=== PATIENT | male | born 1965 | race Caucasian/White ===

== ENCOUNTER 2018-08-12 15:27 | Observation (INO) ==
[2018-08-12] MEDS ORDERED: Aspirin 81 MG TAB.CHEW PO STA (15:32)
--- NOTE | 2018-08-12 15:35 | Emergency Department Note ---
Disposition Clinical Impression: Chest pain Disposition: Admitted As Inpatient Condition: Good Time of Disposition: 17:00 Chest Pain HPI - General Chief Complaint: ED Chest Pain Stated Complaint: substernal chest pain Time Seen by Provider: 08/12/18 15:27 Source: patient Mode of arrival: ambulatory Limitations: no limitations Vital Signs Reviewed: Yes Nursing Notes Reviewed: Yes - History of Present Illness HPI Narrative: Patient presents to emergency department today with history of chest pain yesterday that lasted about an hour. Went away on its own. He has never had chest pain like this before it was substernal. He did break out in a sweat had some nausea did not complain of any shortness of breath. Today he said intermittent chest pain he is not having chest pain currently. He says he just has not felt well today. He denies any fevers or chills belly pain diarrhea or other complaints Onset (ago): day(s) (1) Duration: intermittent Pain Location: substernal Severity: mild Quality: tightness Pain Radiation: none Improves with: nothing Worsens with: nothing Associated symptoms: Reports: nausea, diaphoresis. Denies: vomiting, dyspnea, syncope, palpitations, fever, cough, leg swelling, other Treatments prior to arrival chest pain: none - Related Data Home Medications Medication Instructions Recorded Confirmed Hydrochlorothiazide [Microzide] 12.5 mg PO BID 12/10/15 08/12/18 amLODIPine [Norvasc] 10 mg PO BID 12/10/15 08/12/18 Allergies Allergy/AdvReac Type Severity Reaction Status Date / Time No Known Allergies Allergy Verified 12/10/15 17:22 All systems ED: reviewed and negative except as stated. Review of Systems: As Per HPI Constitutional: Denies: fever, chills, weakness, weight change Eyes: Denies: eye pain, eye discharge, vision change ENT ED: Denies: ear pain, throat pain, dental pain, hearing loss, epistaxis, congestion, dysphagia Cardiovascular: Reports: as per HPI, chest pain Respiratory: Denies: cough, dyspnea, wheezes, hemoptysis, stridor Gastrointestinal: Reports: as per HPI, nausea. Denies: abdominal pain, v omiting, diarrhea, constipation, hematemesis, melena, hematochezia Genitourinary: Denies: urgency, dysuria, frequency, hematuria Musculoskeletal: Denies: back pain, neck pain, arthralgia, myalgia Integumentary: Denies: rash, abrasion, lesions Neurological: Denies: headache, weakness, numbness, paresthesias, confusion, abnormal gait, vertigo Psychiatric: Denies: anxiety, depression, suicidal thoughts, homicidal thoughts, auditory hallucinations, visual hallucinations Endocrine: Denies: fatigue Hematological/Lymphatic: Denies: easy bleeding, easy bruising Allergic/Immunologic: Denies: facial swelling, urticaria Chest Pain PMH - Past Medical History Medical history: Reports: hypertension, other Psychiatric history: Reports: depression, PTSD - Social History Smoking Status: Never smoker Alcohol use: Reports: occasionally Drug use: Reports: none Physical Exam - General Limitations: no limitations General appearance: alert, in no apparent distress - Head Head exam: atraumatic, normocephalic, normal inspection - Eye Eye exam: Present: normal appearance, PERRL, EOMI - ENT ENT exam: normal exam, normal oropharynx, mucous membranes moist - Neck Neck exam: Present: normal inspection, full ROM, trachea midline - Chest Chest inspection: Present: normal inspection, symmetric chest wall rise - Respiratory Respiratory exam: Present: normal lung sounds bilaterally - Cardiovascular Cardiovascular exam: Present: regular rate, normal rhythm, normal heart sounds - Abdominal Exam Abdominal exam: Present: soft, Non-Tender. Absent: tenderness, distention, guarding, rebound, rigidity - Extremities Exam Extremities exam: Present: normal inspection, full ROM. Absent: tenderness, pedal edema - Back Exam Back exam: Present: normal inspection, full ROM. Absent: tenderness - Neurological Exam Neurological exam: Present: alert, oriented X3 - Psychiatric Psychiatric exam: Present: normal affect, normal mood - Skin Skin exam: Present: warm, dry, intact, normal color Chest Pain - [facility] Narrative Medical decision making narrative: I reviewed the patient's medication list Case discussed with Dr. Davila who is graciously accepted admission - Lab Data Lab results reviewed: Yes I reviewed the patient's lab results. - Radiology Data Radiology results reviewed: Yes I reviewed the patient's radiology results. - EKG Data EKG attestation: Yes I reviewed and interpreted this EKG. EKG results narrative: EKG shows normal sinus rhythm with a rate of 107 bpm slight sinus tachycardia. IL intervals 130 ms QRS duration 96 ms QT QTC intervals 331 and 442 ms respectively. R axis of 75 degrees. Borderline T waves noted.
[2018-08-12] MEDS ORDERED: 0.9 % Sodium Chloride 1,000 ML IVC SCH ×2 (15:45→18:36)
[2018-08-12 15:50] LABS: Basophils # 0.1 K/mcL (0.0-0.2); Basophils % 0.7 %; Eosinophils # 0.2 K/mcL (0.0-0.6); Eosinophils % 2.7 %; Hematocrit 47.9 % (37.5-50.1); Hemoglobin 16.9 g/dL (12.9-16.9); Immature Granulocytes % 0.3 % (0-4); Lymphocytes # 1.2 K/mcL (0.6-4.6); Lymphocytes % 16.7 %; Mean Corpuscular HGB Conc 35.3 g/dL (31.6-35.5); Mean Corpuscular Hemoglobin 31.3 pg (28.0-33.3); Mean Corpuscular Volume 88.7 fL (83.0-100.0); Mean Platelet Volume 9.7 fL (9.4-12.4); Monocytes # 0.6 K/mcL (0.0-1.3); Monocytes % 8.3 %; Neutrophils # 5.1 K/mcL (1.6-8.9); Platelet Count 238 K/mcL (140-400); Red Cell Distribution Width 12.8 % (11.5-14.5); Segmented Neutrophils % 71.3 %; White Blood Count 7.1 K/mcL (4.3-11.1)
[2018-08-12] MEDS: Nitroglycerin 0.4 MG TAB.SUBL SL PRN ×3 (15:51→16:02)
[2018-08-12 16:09] LABS: Alanine Aminotransferase 23 Units/L (7-52); Albumin/Globulin Ratio 1.3 (1.1-2.2); Alkaline Phosphatase 73 Units/L (34-104); Aspartate Amino Transferase 19 Units/L (13-39); BUN/Creatinine Ratio 13 (6-26); Bilirubin,Total 0.9 mg/dL (0.3-1.0); Blood Urea Nitrogen 13 mg/dL (6-20); Calcium 9.2 mg/dL (8.6-10.3); Carbon Dioxide 26 mEq/L (23-29); Chloride 102 mEq/L (98-107); Glucose 124 mg/dL (70-105); Osmolality,Calculated 284 (280-300); Potassium 4.2 mEq/L (3.5-5.1); Sodium 136 mEq/L (136-145); eGFR For African Americans > 60 (> 60); eGFR For Non-African Americans > 60 (> 60)
[2018-08-12 16:10] LABS: Troponin I < 0.03 ng/mL (< 0.04)
[2018-08-12] MEDS ORDERED: Nitroglycerin 0.4 MG TAB.SUBL SL PRN (18:36)
[2018-08-12] MEDS ORDERED: Naloxone 0.4 MG/ML INJ IVP PRN (18:36)
[2018-08-12] MEDS ORDERED: amLODIPine 5 MG TABLET PO SCH (21:00)
[2018-08-12] MEDS: hydroCHLOROthiazide 25 MG TABLET PO SCH (21:35)
[2018-08-13 06:41] VITALS: BP 148/99
--- NOTE | 2018-08-13 09:36 | Internal Med History&Physical ---
Date of Encounter: 08/13/18 Time of Encounter: 09:10 Assessment and Plan (1) Chest pain Current visit: Yes Status: Acute Repeat cardiac enzymes were ordered through emergency room. Qualifiers: Chest pain type: precordial pain Qualified Code(s): R07.2 - Precordial pain (2) Hypertension Current visit: Yes Status: Chronic He reports good control at home. Blood pressures in emergency room were elevated. Qualifiers: Hypertension type: essential hypertension Qualified Code(s): I10 - Essential (primary) hypertension Internal Medicine - H&P: HPI Chief complaint: Chest discomfort Admitted From: Emergency Dept Plans for Post Hospital Care: Home History of present illness: Mr. Joyner is a 53 year old male came to emergency room stating he had disco mfort he describes as a tightness/heaviness in his bilateral upper chest shortly after awakening the morning of admission. When it persisted for over 4 hours he came to emergency room. He was evaluated and admitted to [facility] floor for ongoing care needs. He reports a similar sensation the previous day that came and resolved several times over a 2 hour time period. Cardiac history is positive for hypertension. He reports blood pressures at home generally have systolics in the [id number] and diastolic 80-90. He denies IL heart failure DVT or pulmonary embolus. He reports he is able to ride a stationary bike 30-40 minutes without chest discomfort. He thinks he had an EST and heart catheter approximately 2003 which were unremarkable. Past Med Surg Social Fam HX - Past Medical History Medical history: GERD, hypertension Additional medical history: nerve pain to right leg Psychiatric history: depression, PTSD - Past Surgical History Additional surgical history: Left shoulder. tubes in ears - Social History Smoking Status: Never smoker Smokeless Tobacco Status: No Alcohol use: heavy Drug use: none Internal Medicine - H&P: Meds Hydrochlorothiazide [Microzide] 12.5 mg PO BID 12/10/15 [History] amLODIPine [Norvasc] 10 mg PO BID 12/10/15 [History] Allergy/AdvReac Type Severity Reaction Status Date / Time No Known Allergies Allergy Verified 12/10/15 17:22 ROS unobtainable: due to endotracheal tube (Neurologic: He denies large discussion strokes or seizuresEndocrine: He denies diabetes thyroid disease or hyperlipidemiaHematology/oncology: Denies blood disorders cancers or anemiaPsychiatric: He has PTSD. He has feelings of depression occasionally. He denies other mental health diagnosis.Musko skeletal: He has had left shoulder labrum tear repair surgery. He has right sciatica. He denies other bone joint or muscle disorders.ther kidney or b) All Systems PM: A 10-system review of systems was performed and is negative for pertinent findings except as documented above in the HPI. Review of systems: Gen.: He states his weight is stable for several months Cardiovascular:As per history of present illness Respiratory: He is a lifelong nonsmoker denies chronic lung disease GI: He has had right inguinal hernia repair with mesh waste month approximately 1998. He has had cholecystectomy. He denies other disorders of liver or exocrine pancreas : He has had kidney stones with most recent one 2016. He denies other kidney bladder prostate disorders Neurologic: He denies large distribution strokes or seizures. Endocrine: He denies diabetes thyroid disease or hyperlipidemia Hematology/oncology: Denies blood disorders cancers or anemia Psychiatric: He has PTSD and feels depressed at times. Denies other mental health diagnoses. Musko skeletal: He has right sciatica. He had surgical repair of left shoulder labrum tear remotely. He denies other bone joint or muscle disorders. - Constitutional Vitals: Temp Pulse Resp BP Pulse Ox 98.6 F 84 16 148/99 98 08/13/18 06:40 08/13/18 06:40 08/13/18 06:40 08/13/18 06:40 08/13/18 06:40 Exam: Gen.: He is a well-developed well-nourished male resting comfortably in bed who appears in no acute distress. He denies pain or discomfort at present time HEENT: Head is atraumatic and normocephalic. Eyes: EOMI. There is no scleral icterus. Mouth: Mucosa is moist. Neck: Supple and nontender. There is no thyromegaly or adenopathy noted. Heart: Regular without murmurs gallops or ectopics Lungs: No wheezes or crackles are heard. Abdomen: Soft and nontender. No masses or guarding are noted. Extremities: There is no cyanosis edema or clubbing noted. Dorsalis pedis and posttibial pulses are 2 over 2 bilaterally. Neurologic: Mental status: He is talkative and a good historian. Cranial nerves: Smile is symmetric. Forehead wrinkles bilaterally. Tongue protrudes midline. EOMI. Motor: There is no pronator drift. Cerebellar: Fair to nose is intact bilaterally. Skin: Warm and dry Internal Med - H&P Results - Labs CBC & Chem 7: 08/12/18 15:46 08/12/18 15:46 Labs: Short CBC 08/12/18 Range/Units 15:46 WBC 7.1 (4.3-11.1) K/mcL Hgb 16.9 (12.9-16.9) g/dL Hct 47.9 (37.5-50.1) % Plt Count 238 (140-400) K/mcL Neutrophils # 5.1 (1.6-8.9) K/mcL BMP 08/12/18 15:46 Sodium 136 Potassium 4.2 Chloride 102 Carbon Dioxide 26 BUN 13 Creatinine 1.00 Glucose 124 H Calcium 9.2 Cardiac Enzymes 08/12/18 08/12/18 08/12/18 Range/Units 15:46 17:54 23:17 Troponin I < 0.03 < 0.03 < 0.03 (< 0.04) ng/mL 08/13/18 Range/Units 05:44 Troponin I < 0.03 (< 0.04) ng/mL Liver Function 08/12/18 Range/Units 15:46 Total Bilirubin 0.9 (0.3-1.0) mg/dL AST 19 (13-39) Units/L ALT 23 (7-52) Units/L Alkaline Phosphatase 73 (34-104) Units/L Albumin 4.0 (3.5-5.7) g/dL - Impressions ITS Impressions Chest X-Ray 08/12/18 15:32 IMPRESSION: No acute cardiopulmonary process. D/ / 08/12/2018 15:48:09 Marybel Lorenzo MD / Briana Hurst Interpreting Provider: Marybel Lorenzo MD
--- NOTE | 2018-08-13 09:45 | Discharge Summary ---
Orders not resulted at time of discharge: Pending orders 08/12/18 15:32 ECG 12 lead ECG [ECG] Stat Date of Encounter: 08/13/18 Time of Encounter: 09:10 - Discharge Diagnosis (1) Chest pain Priority: Primary Status: Resolved Qualifiers: Chest pain type: precordial pain Qualified Code(s): R07.2 - Precordial pain (2) Hypertension Priority: Secondary Status: Chronic Qualifiers: Hypertension type: essential hypertension Qualified Code(s): I10 - Essential (primary) hypertension Hospital course: Mr. Joyner is a 53 year old male who came to emergency room stating he had discomfort he describes as a tightness/heaviness in his bilateral upper chest shortly after awakening the morning of admission. When it persisted for over 4 hours he came to emergency room. He was evaluated and admitted to [facility] for ongoing care needs. Initial orders were written by the emergency room physician. I saw him on August 13 and performed the history physical and discharge. By the time I saw him the pain had completely resolved and had not recurred. His blood pressure showed significant fluctuation. I encouraged him to monitor his blood pressure at home and discuss with his PCP adjusting medication doses to keep systolic 130 or below and diastolic 80 or below. He felt stable for discharge home which I felt was reasonable. He will follow with his PCP within 1 week. - Time Spent with Patient Total time spent providing and/or coordinating discharge services: - Discharge Medications Prescriptions: Continued Hydrochlorothiazide [Microzide] 12.5 mg PO BID amLODIPine [Norvasc] 10 mg PO BID Home Medications: Hydrochlorothiazide [Microzide] 12.5 mg PO BID 12/10/15 [History] amLODIPine [Norvasc] 10 mg PO BID 12/10/15 [History] Allergies/Adverse Reactions: Allergy/AdvReac Type Severity Reaction Status Date / Time No Known Allergies Allergy Verified 12/10/15 17:22 Date of admission: 08/12/18 18:30 Primary care physician: Lizbeth Sauecda CNP - Constitutional Vitals: Temp Pulse Resp BP Pulse Ox 98.6 F 84 16 148/99 98 08/13/18 06:40 08/13/18 06:40 08/13/18 06:40 08/13/18 06:40 08/13/18 06:40 - Patient Status Disposition: Home, Self-Care Condition: Good - Discharge Instructions Follow Up With: Lizbeth Sauceda CNP [Primary Care Provider] - 1 week - Diet and Activity Activity: resume usual activities as tolerated Diet: advance to your usual diet
[2018-08-13] MEDS: hydroCHLOROthiazide 25 MG TABLET PO SCH (10:17)
--- NOTE | 2018-08-16 15:57 | Electrocardiograph Report ---
[place] [id number] Test Date: 2018-08-12 Pat Name: Skip Joyner Department: EDP-16 Room: [facility] Gender: M [employer]: : 1965 Requested By: Jose Call Order Number: [id number] Reading MD: Rupinder Yates Measurements Intervals [place] Rate: 107 P: 68 [place]: 138 QRS: 75 QRSD: 96 T: 19 QT: 331 QTc: 442 Interpretive Statements Sinus tachycardia Borderline T wave abnormalities Electronically Signed On 08-16-2018 15:56:21 EDT by Rupinder Yates
== END 2018-08-13 10:18 | disposition home or self-care (01) ==
LOC: EMEROOPIK 15:27 → INPPIK 15:27
PROVIDERS: ADMIT Internal Medicine; ATTEND Internal Medicine